=== PATIENT | male | born 1970 | race Caucasian/White ===

== ENCOUNTER 2018-10-20 18:00 | Emergency (ER) | payer MEDICAID ==
[~2018-10-20] VITALS: Ht 170.2 cm; Wt 55.5 kg
[~2018-10-20 18:00] MED LIST: DIPH25CA83 PO; FAMO-128 PO; NAPR220C15 PO
[2018-10-20] MEDS ORDERED: TETRAcaine 0.5% ophthalmic drops 15ml EACHEYE ONE (19:45)
[2018-10-20] MEDS ORDERED: proparacaine 0.5% ophthalmic drops 15ml EACHEYE ONE (19:45)
[2018-10-20] MEDS ORDERED: VIG0.5OS LEFTEYE (20:53)
[2018-10-20 21:12] VITALS: BP 122/83
== END 2018-10-20 21:15 | disposition home or self-care (01) ==
LOC: ER 18:00
DX: T15.02XA Foreign body in cornea, left eye, initial encounter (principal); Z79.899 Other long term (current) drug therapy; W45.8XXA Other foreign body or object entering through skin, initial encounter; Y93.89 Activity, other specified; Y92.89 Other specified places as the place of occurrence of the external cause; Y99.8 Other external cause status
CPT/HCPCS: 65222; 99284

== ENCOUNTER 2018-10-21 16:57 | Emergency (ER) | payer MEDICAID ==
[~2018-10-21] VITALS: Ht 170.2 cm; Wt 56.9 kg
[~2018-10-21 16:57] MED LIST changes: +VIG0.5OS LEFTEYE
[2018-10-21 17:08] VITALS: BP 104/51
--- NOTE | 2018-10-21 17:22 | NUR ---
PT AMBULATED TO ROOM WAITING FOR MD FOR EYE RECHECK. NO APPARENT DISTRESS. WILL CONT TO MONITOR
[2018-10-21] MEDS ORDERED: proparacaine 0.5% ophthalmic drops 15ml LEFTEYE ONE (17:25)
--- NOTE | 2018-10-21 17:35 | NUR ---
PA AT BEDSIDE FOR EYE EXAM
== END 2018-10-21 17:54 | disposition home or self-care (01) ==
LOC: ER 16:58
DX: S05.02XD Injury of conjunctiva and corneal abrasion without foreign body, left eye, subsequent encounter (principal); H10.9 Unspecified conjunctivitis; Z79.899 Other long term (current) drug therapy; W45.8XXD Other foreign body or object entering through skin, subsequent encounter
CPT/HCPCS: 99282

== ENCOUNTER 2019-01-13 08:11 | Emergency (ER) | payer MEDICAID ==
[~2019-01-13] VITALS: Ht 170.2 cm; Wt 55.5 kg
[~2019-01-13 08:11] MED LIST changes: -VIG0.5OS LEFTEYE
[2019-01-13 08:12] VITALS: BP 117/75
[2019-01-13] MEDS ORDERED: proparacaine 0.5% ophthalmic drops 15ml EACHEYE ONE (09:55)
[2019-01-13] MEDS ORDERED: ERYT1OIN6 LEFTEYE (10:25)
== END 2019-01-13 10:38 | disposition home or self-care (01) ==
LOC: ER 08:12
DX: T15.02XA Foreign body in cornea, left eye, initial encounter (principal); Z79.899 Other long term (current) drug therapy; W22.8XXA Striking against or struck by other objects, initial encounter; Y93.89 Activity, other specified; Y92.89 Other specified places as the place of occurrence of the external cause; Y99.8 Other external cause status
CPT/HCPCS: 65222; 99284